=== PATIENT | male | born 1975 | race Hispanic/Latino ===

== ENCOUNTER → 2018-10-13 | Outpatient (CLI) | payer OTHER ==
[~2018-10-13] MED LIST: PANTOPRAZOLE SO40 MG PO; SUCRALFATE1 GM PO
--- NOTE | 2018-10-13 11:41 | Diagnostic Imaging Report ---
Exam: Lumbar spine 3 views, sacrum and coccyx 2 views History: Lumbar spine pain Comparison: None. Findings: There are 5 nonrib-bearing lumbar-type vertebral bodies. No acute, displaced fracture or subluxation. Disc spaces and facet joints are well-maintained. The sacral foramina are intact superiorly. Inferiorly, the sacrum is obscured by rectal gas and stool. No sacrococcygeal step-off on the lateral radiograph. Sacroiliac joints are well-maintained. Impression: No acute osseous abnormality. Well-preserved lumbosacral disc spaces, facet joints, and sacroiliac joints. Signed by: Dr. Riley Flores M.D. on 10/13/2018 11:38 AM
== END ==
LOC: RAD 10:47
PROVIDERS: ATTEND Internal Medicine
DX: M47.27 Other spondylosis with radiculopathy, lumbosacral region (principal)
CPT/HCPCS: 72100; 72220